=== PATIENT | female | born 2000 | race Caucasian/White ===

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

== ENCOUNTER 2021-07-03 23:08 | Outpatient (CLI) | payer OTHER, SELFPAY ==
[2021-07-03 23:40] LABS: T4 Free Direct 0.87 ng/dL (0.76-1.46); Thyroid Stim Hormone (TSH) 1.35 uIU/mL (0.358-3.74)
[2021-07-05 13:35] LABS: Thyroid Peroxidase AB < 8 IU/mL (0-34)
== END 2021-07-03 23:59 | disposition home or self-care (01) ==
PROVIDERS: PCP Nurse Practitioner; Referring Provider Nurse Practitioner; Visit Provider Nurse Practitioner
DX: E01.0 Iodine-deficiency related diffuse (endemic) goiter (principal)
CPT/HCPCS: 84439; 84443; 86376